=== PATIENT | male | born 1990 | race Caucasian/White ===

== ENCOUNTER 2017-08-07 01:41 | Emergency (ER) | payer OTHER ==
[~2017-08-07] VITALS: Ht 182.9 cm; Wt 99.8 kg
[2017-08-07 01:41] VITALS: BP_SYST 121
--- NOTE | 2017-08-07 01:45 | NUR ---
Patient to ER bed 4 with [facility], awaiting evaluation by ER MD.
--- NOTE | 2017-08-07 01:48 | NUR ---
Dr Chin at bedside to evaluate patient.
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
--- NOTE | 2017-08-07 02:10 | NUR ---
Written and verbal consent obtained from patient for blood alcohol, name and verified by patient. Disinfected patient's skin with Povidone-Iodine that did not contain alcohol or other volatile organic compound. Collected the blood from the subject named by venipuncture, in the presence of Officer Milton. Used a sterile, dry hypodermic needle and dry vacuum blood collection. The dry vacuum blood collection was supplied by the officer named above. Withdrew a specimen of blood from the right hand of the subject named above. Inverted the blood tube several times to ensure that the preservative and anticoagulant were thoroughly mixed in the blood specimen. The labeled blood tube was handed directly to the Officer named above. The blood tube stopper remained in place while I had possession of the blood tube. The Officer placed tube into envelope and sealed it in my presence. Envelope initialed by myself and Officer named above. Patient tolerated well, bandage applied, and bleeding controlled.
--- NOTE | 2017-08-07 02:15 | NUR ---
Patient to x-ray department for films.
--- NOTE | 2017-08-07 02:25 | NUR ---
Patient back from x-ray in nad.
--- NOTE | 2017-08-07 02:35 | NUR ---
Patient given written and verbal discharge instructions and verbalizes understanding. ER MD discussed with patient the results and treatment provided. Patient in stable condition. ID arm band removed. No RX given. Patient educated on pain management and to follow up with PMD. Pain Scale 3. Opportunity for questions provided and answered. Patient discharged in custody of [facility], patient left ED ambulating with slow, steady gait in nad.
== END 2017-08-07 02:35 ==
LOC: SED 01:41
DX: R07.9 Chest pain, unspecified (principal); V43.52XA Car driver injured in collision with other type car in traffic accident, initial encounter; Y93.89 Activity, other specified; Y92.89 Other specified places as the place of occurrence of the external cause; Y99.8 Other external cause status
CPT/HCPCS: 71010; 72040-TC; 99284